=== PATIENT | male | born 1960 | race Caucasian/White ===

== ENCOUNTER 2018-03-23 08:17 | Outpatient (CLI) | payer BC ==
[~2018-03-23] VITALS: Ht 185.4 cm; Wt 114.0 kg
[2018-03-23] VITALS (7 sets, daily range): BP systolic 118–151; BP diastolic 80–91; PULSE 67–88; TEMP 98.3–98.9
[2018-03-23] MEDS ORDERED: ASPIRIN E.C. 8181 MG PO (08:37)
[2018-03-23] MEDS ORDERED: LIPITOR 40MG TA40 MG PO (08:38)
[2018-03-23] MEDS ORDERED: CANA300T PO (08:38)
[2018-03-23] MEDS ORDERED: GLUCOPHAGE XR500 M1 PO (08:38)
[2018-03-23] MEDS ORDERED: PRINZIDE 12.5 M1 TAB PO (08:41)
[2018-03-23] MEDS ORDERED: ADVIL200 MG PO (08:42)
[2018-03-23] MEDS ORDERED: PLAVIX 75MG TAB75 MG PO (08:42)
[2018-03-23] MEDS ORDERED: TYLENOL 325MG325 MG PO (08:43)
[2018-03-23] MEDS ORDERED: ORENCIA CL125 MG/1 M SQ (08:44)
[2018-03-23 09:08] LABS: HEMATOCRIT 47.4 % (42.0-52.0); HEMOGLOBIN 16.2 g/dl (13.5-18.0); MEAN CELL VOLUME 94 fl (80.0-100.0); MEAN CORPUSCULAR HEMOGLOBIN 32 pg (27.0-31.0); MEAN CORPUSCULAR HGB CONC 34 g/dl (33.0-37.0); MEAN PLATELET VOLUME 9.6 fl (7.4-10.4); PLATELET COUNT 236 K/mm3 (130-400); RED BLOOD COUNT 5.06 M/mm3 (4.20-5.60); REDCELL DISTRIBUTION WIDTH-CV 12.2 % (11.5-14.5)
[2018-03-23 09:15] LABS: PROTHROMBIN TIME 11.5 SECONDS (9.7-12.8)
[2018-03-23 09:17] LABS: CALCIUM 9.3 mg/dL (8.4-10.2); CREATININE, serum 0.75 mg/dL (0.66-1.25); POTASSIUM 4.2 mmol/L (3.4-5.0)
== END 2018-03-23 11:39 | disposition home or self-care (01) ==
LOC: COL.RAD 08:17
PROVIDERS: Internal Medicine Cardiovascular Disease
DX: G45.9 Transient cerebral ischemic attack, unspecified (principal); I70.0 Atherosclerosis of aorta; I10 Essential (primary) hypertension; F17.210 Nicotine dependence, cigarettes, uncomplicated; E78.00 Pure hypercholesterolemia, unspecified; E11.9 Type 2 diabetes mellitus without complications
CPT/HCPCS: G9654; J2704